=== PATIENT | male | born 1995 | race Caucasian/White ===

== ENCOUNTER 2018-07-18 17:03 | Emergency (ER) | payer BC ==
[2018-07-18] MEDS ORDERED: Ketorolac 30 MG/ML SDV IM ONE (18:55)
[2018-07-18] MEDS ORDERED: Ondansetron 4 MG/2 ML SDV IVPUSH ONE (19:35)
[2018-07-18] MEDS ORDERED: Sodium Chloride 0.9% 10 ML Syringe FLUSH PRN (19:35)
[2018-07-18] MEDS ORDERED: Sodium Chloride 0.9% 1,000 ML IV SCH (19:45)
--- NOTE | 2018-07-18 20:04 | EDM.PDOC ---
ED HPI GENERAL MEDICAL PROBLEM - General Chief Complaint: Respiratory Problem Stated Complaint: BODY ACHES Time Seen by Provider: 07/18/18 18:29 Source of Information: Reports: Patient, RN Notes Reviewed History Limitations: Reports: No Limitations - History of Present Illness INITIAL COMMENTS - FREE TEXT/NARRATIVE: Patient is a 22 year old male who presents to the ED for body aches. He states that he was seen at [facility] earlier today and that they gave him some antibiotics to take, he did not fill these and came here because the body aches were too bad. He was tested for influenza at [facility] and this was negative. He states that he has been sick for around 6 days now with cough, sinus issues, nausea, and some diarrhea, but no vomiting. He did take 1 tylenol yesterday but this did not help much. He has not been taking any other OTC medications for his illness either. He admits to dizziness and lightheadedness and a smaller appetite than normal for him. He thinks that he has a low grade fever, but has not checked this at home. He did state that he just cannot get warm. Generalized Pain Score (Numeric/FACES): 5 - Related Data Allergies Allergy/AdvReac Type Severity Reaction Status Date / Time Penicillins Allergy Cannot Verified 07/18/18 17:13 Remember Past Medical History - Past Health History Medical/Surgical History: Denies Medical/Surgical History Social & Family History - Tobacco Use Smoking Status *Q: Current Every Day Smoker Years of Tobacco use: 5 Packs/Tins Daily: 1 - Caffeine Use Caffeine Use: Reports: Coffee - Recreational Drug Use Recreational Drug Use: No ED ROS GENERAL - Review of Systems Review Of Systems: See Below Constitutional: Reports: Chills, Malaise HEENT: Reports: Sinus Problem. Denies: Ear Pain, Throat Pain, Throat Swelling Respiratory: Reports: Cough. Denies: Shortness of Breath, Wheezing Cardiovascular: Reports: No Symptoms Endocrine: Reports: No Symptoms GI/Abdominal: Reports: No Symptoms : Reports: No Symptoms Musculoskeletal: Reports: Other (general body aches) Skin: Reports: No Symptoms Neurological: Reports: No Symptoms Psychiatric: Reports: No Symptoms Hematologic/Lymphatic: Reports: No Symptoms Immunologic: Reports: No Symptoms ED EXAM, GENERAL - Physical Exam Exam: See Below Exam Limited By: No Limitations General Appearance: Alert, WD/WN, No Apparent Distress Eye Exam: Bilateral Eye: EOMI, Normal Inspection, PERRL Ears: Normal External Exam, Normal Canal, Hearing Grossly Normal, Normal TMs ( serous fluid noted behind bilateral TMs) Nose: Normal Inspection, No Blood, Nasal Swelling (bilateral turbinate injection ) Throat/Mouth: Normal Inspection, Normal Lips, Normal Teeth, Normal Gums, Normal Oropharynx (dry oral mucosa), Normal Voice, No Airway Compromise Neck: Normal Inspection, Supple Respiratory/Chest: No Respiratory Distress, Lungs Clear, Normal Breath Sounds, No Accessory Muscle Use, Chest Non-Tender Cardiovascular: Normal Peripheral Pulses, Regular Rate, Rhythm, No Murmur GI/Abdominal: Normal Bowel Sounds, Soft, Non-Tender, No Distention, No Mass Back Exam: Normal Inspection Extremities: Normal Inspection, Normal Range of Motion, Normal Capillary Refill Neurological: Alert, Oriented, Normal Cognition, No Motor/Sensory Deficits Psychiatric: Normal Affect, Normal Mood Skin Exam: Warm, Dry, Intact, Normal Color, No Rash Course - Vital Signs Last Recorded V/S: Last Vital Signs Temp 99.7 F 07/18/18 17:12 Pulse 88 07/18/18 17:12 Resp 16 07/18/18 17:12 BP 114/71 07/18/18 17:12 Pulse Ox 99 07/18/18 17:12 - Orders/Labs/Meds Orders: Active Orders 24 hr Category Date Time Status Peripheral IV Care [RC] . DIRECTED Care 07/18/18 19:36 Ordered Sodium Chloride 0.9% [Normal Saline] 1,000 ml Med 07/18/18 19:45 Ordered IV ASDIRECTED Sodium Chloride 0.9% [Saline Flush] Med 07/18/18 19:35 Ordered 10 ml FLUSH ASDIRECTED PRN Peripheral IV Insertion Adult [OM.PC] Routine Oth 07/18/18 19:35 Ordered Medication Orders Sodium Chloride (Normal Saline) 1,000 mls @ 999 mls/hr IV ASDIRECTED AV Last Admin: 07/18/18 20:02 Dose: 999 mls/hr Sodium Chloride (Saline Flush) 10 ml FLUSH ASDIRECTED PRN PRN Reason: Keep Vein Open Last Admin: 07/18/18 20:03 Dose: 10 ml Labs: Laboratory Tests 07/18/18 07/18/18 Range/Units 19:05 19:05 WBC 5.41 (4.23-9.07) K/mm3 RBC 5.25 (4.63-6.08) M/mm3 Hgb 15.5 (13.7-17.5) gm/L Hct 45.3 (40.1-51.0) % MCV 86.3 (79.0-92.2) fl MCH 29.5 (25.7-32.2) pg MCHC 34.2 (32.2-35.5) g/dl RDW Std Deviation 42.8 (35.1-43.9) fL Plt Count 190 (163-337) K/mm3 MPV 10.9 (9.4-12.3) fl Neutrophils % (Manual) 71 H (40-60) % Band Neutrophils % 2 (0-10) % Lymphocytes % (Manual) 14 L (20-40) % Atypical Lymphs % 0 % Monocytes % (Manual) 12 H (2-10) % Eosinophils % (Manual) 0 L (0.8-7.0) % Basophils % (Manual) 1 (0.2-1.2) Platelet Estimate Adequate RBC Morph Comment Normal Sodium 136 (136-145) mEq/L Potassium 4.2 (3.5-5.1) mEq/L Chloride 99 (98-107) mEq/L Carbon Dioxide 24 (21-32) mEq/L Anion Gap 17.2 H (5-15) BUN 13 (7-18) mg/dL Creatinine 1.2 (0.7-1.3) mg/dL Est Cr Clr Drug Dosing 98.28 mL/min Estimated GFR (MDRD) > 60 (>60) mL/min BUN/Creatinine Ratio 10.8 L (14-18) Glucose 88 (74-106) mg/dL Calcium 9.1 (8.5-10.1) mg/dL Total Bilirubin 0.5 (0.2-1.0) mg/dL AST 37 (15-37) U/L ALT 52 (16-63) U/L Alkaline Phosphatase 64 (46-116) U/L Total Protein 8.0 (6.4-8.2) g/dl Albumin 4.2 (3.4-5.0) g/dl Globulin 3.8 gm/dL Albumin/Globulin Ratio 1.1 (1-2) Meds: Medications Generic Name Dose Route Start Last Admin Trade Name Freq PRN Reason Stop Dose Admin Sodium Chloride 1,000 mls @ 999 mls/hr 07/18/18 19:45 07/18/18 20:02 Normal Saline IV 999 mls/hr ASDIRECTED AV Administration Sodium Chloride 10 ml 07/18/18 19:35 07/18/18 20:03 Saline Flush FLUSH 10 ml ASDIRECTED PRN Administration Keep Vein Open Discontinued Medications Generic Name Dose Route Start Last Admin Trade Name Beth PRN Reason Stop Dose Admin Ketorolac Tromethamine 30 mg 07/18/18 18:55 07/18/18 19:01 Toradol IM 07/18/18 18:56 30 mg ONETIME ONE Administration Ondansetron HCl 4 mg 07/18/18 19:35 07/18/18 20:02 Zofran IVPUSH 07/18/18 19:36 4 mg ONETIME ONE Administration - Re-Assessments/Exams Free Text/Narrative Re-Assessment/Exam: 07/18/18 19:00 Pt presents to the ED for the evaluation of body aches. I am unsure of what his true intentions are for the ER visit, as he was seen across [facility] today by Gill. I have ordered CBC, CMP to evaluate the diarrhea/ feelings of lightheadedness he has been having for possible dehydration. I have ordered 30 mg IV toradol for pain relief of his body aches. 07/18/18 20:09 Labs have returned and his anion gap is a little elevated, which may explain the nausea, I have ordered a IV fluid bolus for this. His WBC is normal. 07/18/18 20:59 Pt re-assessed at bedside. He states that the toradol and fluids have helped. Will d/c home with general recommendations. Departure - Departure Time of Disposition: 21:00 Disposition: Home, Self-Care 01 Condition: Fair Clinical Impression: Generalized body aches, Viral URI - Discharge Information *PRESCRIPTION DRUG MONITORING PROGRAM REVIEWED*: No *COPY OF PRESCRIPTION DRUG MONITORING REPORT IN PATIENT IRENE: No Instructions: Viral Illness, Adult Referrals: PCP,None [Primary Care Provider] - Forms: ED Department Discharge Additional Instructions: You have been evaluated in the ED for your general body aches and cold like symptoms. Your work up demonstrated that you were a little dehydrated, but do not have an acute bacterial infection. You may take Tylenol 500 mg or ibuprofen 600mg q6 hours for pain relief. Do not exceed 4000mg Tylenol in one day. Do not exceed 3200mg ibuprofen in one day. Please return to ED if your symptoms should change or worsen. - My Orders Last 24 Hours: My Active Orders 07/18/18 19:35 Sodium Chloride 0.9% [Saline Flush] 10 ml FLUSH ASDIRECTED PRN Peripheral IV Insertion Adult [OM.PC] Routine 07/18/18 19:36 Peripheral IV Care [RC] . DIRECTED 07/18/18 19:45 Sodium Chloride 0.9% [Normal Saline] 1,000 ml IV ASDIRECTED - Assessment/Plan Last 24 Hours: My Active Orders 07/18/18 19:35 Sodium Chloride 0.9% [Saline Flush] 10 ml FLUSH ASDIRECTED PRN Peripheral IV Insertion Adult [OM.PC] Routine 07/18/18 19:36 Peripheral IV Care [RC] . DIRECTED 07/18/18 19:45 Sodium Chloride 0.9% [Normal Saline] 1,000 ml IV ASDIRECTED
== END 2018-07-18 21:13 | disposition home or self-care (01) ==
LOC: JD.ED 17:03
DX: J06.9 Acute upper respiratory infection, unspecified (principal); Z88.0 Allergy status to penicillin; F17.210 Nicotine dependence, cigarettes, uncomplicated
CPT/HCPCS: 36415; 80053; 85007; 85027; 96361; 96372; 96374; 99284; J1885; J2405; J7040